=== PATIENT | male | born 1985 | race African-American/Black ===

== ENCOUNTER 2017-11-28 13:11 | Emergency (ER) | payer MEDICAID ==
[~2017-11-28] VITALS: Ht 653.8 cm; Wt 89.0 kg
[~2017-11-28 13:11] MED LIST: SUCR1TAB34 PO
[2017-11-28] MEDS ORDERED: HYDROcodone/acetaminophen 10/325mg tab PO ONE (13:30)
[2017-11-28] MEDS ORDERED: IBUP-1984 PO (14:47)
[2017-11-28] MEDS ORDERED: HYDR-565 PO (14:47)
[2017-11-28 15:19] VITALS: BP 131/77
== END 2017-11-28 15:21 | disposition home or self-care (01) ==
LOC: ER 13:11
DX: S62.336A Displaced fracture of neck of fifth metacarpal bone, right hand, initial encounter for closed fracture (principal); F17.200 Nicotine dependence, unspecified, uncomplicated; Z79.899 Other long term (current) drug therapy; W22.8XXA Striking against or struck by other objects, initial encounter; Y93.89 Activity, other specified; Y92.89 Other specified places as the place of occurrence of the external cause; Y99.8 Other external cause status
CPT/HCPCS: 29125; 73130; 99284

== ENCOUNTER 2018-10-23 08:32 | Emergency (ER) | payer MEDICAID ==
[~2018-10-23] VITALS: Ht 185.4 cm; Wt 99.8 kg
[2018-10-23 09:00] VITALS: BP 132/70
== END 2018-10-23 09:33 | disposition home or self-care (01) ==
LOC: ER 08:33
DX: S51.812A Laceration without foreign body of left forearm, initial encounter (principal); W26.0XXA Contact with knife, initial encounter; Y93.89 Activity, other specified; Y92.89 Other specified places as the place of occurrence of the external cause; Y99.9 Unspecified external cause status
CPT/HCPCS: 99283

== ENCOUNTER 2019-05-30 09:59 | Emergency (ER) | payer MEDICAID, OTHER ==
[~2019-05-30] VITALS: Ht 185.4 cm; Wt 96.5 kg
[2019-05-30] MEDS ORDERED: HYDROcodone/acetaminophen 5mg/325mg tablet PO ONE (10:30)
[2019-05-30 11:10] VITALS: BP 130/82
[2019-05-30] MEDS ORDERED: HYDR-3965 PO (11:33)
== END 2019-05-30 11:58 | disposition home or self-care (01) ==
LOC: ER 09:59
DX: S62.614A Displaced fracture of proximal phalanx of right ring finger, initial encounter for closed fracture (principal); F17.200 Nicotine dependence, unspecified, uncomplicated; F10.99 Alcohol use, unspecified with unspecified alcohol-induced disorder; Z79.899 Other long term (current) drug therapy; W10.8XXA Fall (on) (from) other stairs and steps, initial encounter; Y93.89 Activity, other specified; Y92.89 Other specified places as the place of occurrence of the external cause; Y99.8 Other external cause status; Y90.9 Presence of alcohol in blood, level not specified
CPT/HCPCS: 29130; 73130; 99283

== ENCOUNTER 2020-03-14 01:16 | Inpatient (IN) | payer MEDICAID ==
[~2020-03-14] VITALS: Ht 185.4 cm; Wt 95.0 kg
[2020-03-14] VITALS (18 sets, daily range): BP systolic 113–148; BP diastolic 55–91
[2020-03-14] MEDS ORDERED: fentaNYL/PF 50MCG/1 ML 2ML syringe IV ONE ×2 (01:25→02:35)
[2020-03-14] MEDS ORDERED: ondansetron/PF 4mg/2ml inj IV ONE (01:25)
[2020-03-14 01:40] LABS: ALBUMIN 4.5 G/DL (3.4-5.0); ANION GAP 10 (8-16); BLOOD UREA NITROGEN 11 MG/DL (7-18); BUN/CREATININE RATIO 8.4 (5.4-32.0); CALCIUM 9.1 MG/DL (8.5-10.1); CHLORIDE 103 MMOL/L (99-107); CREATININE 1.31 MG/DL (0.60-1.10); GLUCOSE 124 MG/DL (70-104); POTASSIUM 3.8 MMOL/L (3.5-5.1); SODIUM 141 MMOL/L (135-145); TOTAL CARBON DIOXIDE 27.9 MMOL/L (24-32); eGFR 77 ML/MIN
[2020-03-14 01:43] LABS: BASOPHILS # (AUTO) 0.1 X10'3 (0-0.2); EOSINOPHILS # (AUTO) 0.1 X10'3 (0-0.9); EOSINOPHILS % (AUTO) 0.8 % (0-6); HEMATOCRIT 44.1 % (42.0-52.0); HEMOGLOBIN 15.6 g/dl (14.0-17.9); LYMPHOCYTES # (AUTO) 3.1 X10'3 (1.1-4.8); LYMPHOCYTES % (AUTO) 30.8 % (21-51); MEAN CORPUSCULAR HEMOGLOBIN 33.4 PG (27.0-31.0); MEAN CORPUSCULAR HGB CONC 35.4 g/dL (33.0-36.5); MEAN CORPUSCULAR VOLUME 94.4 FL (78-98); MEAN PLATELET VOLUME 8.2 FL (7.4-10.4); MONOCYTES # (AUTO) 0.6 X10'3 (0-0.9); MONOCYTES % (AUTO) 6.2 % (2-12); NEUTROPHILS # (AUTO) 6.2 X10'3 (1.8-7.7); NEUTROPHILS % (AUTO) 61.2 % (42-75); PLATELET COUNT 229 X10'3 (140-440); RED BLOOD COUNT 4.68 X10'6 (4.70-6.10); RED CELL DISTRIBUTION WIDTH 14.1 % (11.5-14.5); WHITE BLOOD COUNT 10.1 X10'3 (4.5-11.0)
[2020-03-14] MEDS ORDERED: ceFAZolin 1GM/D5W- ADD-VANTAGE 50 ML IV ONE ×3 (01:50→03:45)
[2020-03-14] MEDS: ceFAZolin 1GM/D5W- ADD-VANTAGE 50 ML IV SCH ×4 (01:58→23:13)
--- NOTE | 2020-03-14 02:40 | NUR ---
forestry technician to apply splint. Fentanyl 100 mcg administered for pain
[2020-03-14] MEDS ORDERED: potassium Cl 20 mEq SR tablet PO PRN ×2 (02:55)
[2020-03-14] MEDS ORDERED: ondansetron/PF 4mg/2ml inj IV PRN ×2 (02:55→11:00)
[2020-03-14] MEDS ORDERED: morphine 2 MG/ML inj. syringe IV PRN ×3 (02:55→11:00)
[2020-03-14] MEDS ORDERED: potassium CL 10mEq/100ml bag 100 ML IV PRN ×2 (02:55)
--- NOTE | 2020-03-14 02:57 | NUR ---
Long leg posterior splint applied to Pt right leg. Wound dressed w/ xeroform gauze before splint applied. Pt medicated before procedure w/ 100 mcg fentanyl. CSM intact before and after splint placement.
[2020-03-14] MEDS ORDERED: NO HOME MEDS (03:00)
[2020-03-14] MEDS ORDERED: LORazepam 2 mg/ml vial IV PRN (03:00)
[2020-03-14] MEDS ORDERED: thiamine inj. 100 MG in normal saline 100ml IV soln 100 ML IV ONE (03:00)
--- NOTE | 2020-03-14 03:30 | NUR ---
AMARILIS MATHEW ordered a total of 2 g Ancef.
--- NOTE | 2020-03-14 03:40 | NUR ---
Received report from Rosa MCLAUGHLIN in the ER. Patient will be brought to O/N and go in room 401.
[2020-03-14] MEDS: normal saline 1000ml 1,000 ML IV SCH ×3 (04:11→22:34)
--- NOTE | 2020-03-14 06:24 | NUR ---
Problems reprioritized. Patient report given, questions answered & plan of care reviewed with Jody MCLAUGHLIN.
--- NOTE | 2020-03-14 06:28 | NUR ---
Patient in room ORTHO 4014. I have received report from Rafaela MCLAUGHLIN and had the opportunity to ask questions and assume patient care.
[2020-03-14] MEDS: K and/or MAG REPLACEMENT MC SCH ×2 (08:00→19:05)
[2020-03-14] MEDS ORDERED: HYDROmorphone inj. 0.5 MG/0.5 ML DISP.SYRIN IV PRN (10:25)
--- NOTE | 2020-03-14 10:27 | NUR ---
PAGER ID: [phone] MESSAGE: [id number] Yobany Manning. Dr. Charles said he plans to do surgery later this afternoon. [id number]
[2020-03-14] MEDS ORDERED: proCHLORperazine 10 MG/2 ml inj IV PRN (11:00)
[2020-03-14] MEDS ORDERED: labetalol 20mg/4ml (5mg/ml) syringe IV PRN (11:00)
[2020-03-14] MEDS ORDERED: hydrALAZINE 20mg/ml inj. IV PRN (11:00)
[2020-03-14] MEDS ORDERED: meperidine/PF 25mg/ml syringe IV PRN ×3 (11:00)
[2020-03-14] MEDS ORDERED: morphine 4 MG/ML inj SYRINge IV PRN (11:00)
[2020-03-14] MEDS ORDERED: ringers solution, lacted 1,000 ML IV SCH (11:00)
[2020-03-14] MEDS: HYDROmorphone 1 mg/ml syringe IV PRN (11:59)
[2020-03-14] MEDS ORDERED: famotidine/PF 10 mg/ml inj IV ONE (13:42)
[2020-03-14] MEDS ORDERED: midazolam 2 mg/2 ml injection ONE (13:43)
[2020-03-14] MEDS ORDERED: fentaNYL /PF 50mcg/ml 5ml ampule ONE (14:43)
[2020-03-14] MEDS ORDERED: ROPIVAcaine 0.5% (5mg/ml) 30ml vial ONE ×2 (14:43)
[2020-03-14] MEDS ORDERED: LIDOcaine 2% (20mg/ml) 5ml vial ONE (14:43)
[2020-03-14] MEDS ORDERED: propofol inj 20 ML IV ONE (14:43)
[2020-03-14] MEDS ORDERED: ceFAZolin 1000mg inj ONE (14:44)
[2020-03-14] MEDS ORDERED: rocuronium 10mg/ml inj IV ONE (14:44)
[2020-03-14] MEDS ORDERED: morphine 10mg/ml inj. ONE (14:59)
[2020-03-14] MEDS ORDERED: acetaminophen 1,000mg/100ml IV 100 ML IV ONE (14:59)
[2020-03-14] MEDS ORDERED: BUPIVAcaine/PF 2.5 mg/ml (0.25%) 30ml vial ONE (15:16)
[2020-03-14] MEDS ORDERED: neostigmine methylsulfate 1 MG/ML 10ml vial ONE (15:28)
[2020-03-14] MEDS ORDERED: glycopyrrolate 0.2mg/ml inj ONE (15:28)
--- NOTE | 2020-03-14 15:38 | NUR ---
Received from OR via , accompanied by Anesthesiologist DR CORNELL and report given by Anesthesiolgist. PT IS SLEEPING BUT OPENS EYES TO VOICE, SKIN WARM AND PINK, SCD TO LEFT LE, RIGHT LE HAS SPLINT, XEROFORM, SUTURES AND AN JOHN WRAP, PIV RIGHT HAND 18G WITH LR 100ML/HR, BILAT RADIAL PULSES AND LEFT PEDAL PULSE +3, NO C/O PAIN.
[2020-03-14] MEDS ORDERED: ceFAZolin 1GM/D5W- ADD-VANTAGE 50 ML IV SCH ×2 (16:00)
--- NOTE | 2020-03-14 16:22 | NUR ---
Report called to receiving nurse. Transferred via BED Belongings . Special Issues communicated to receiving nurse ROSA RN. PT WAKES EASILY, LYNNETTE ICE WATER, NO C/O PAIN, RIGHT LE DRESSING CD, PIV PATENT, PT MEETS DISCHARGE CRITERIA.
--- NOTE | 2020-03-14 17:02 | NUR ---
Called Pharmacy to verify Ancef 1GM. Patient received 1152 Ancef on the ortho floor, then went to OR and received Ancef 1GM at 1444. Then the scheduled does was for 1600 Ancef 1GM. I was instructed by the pharmacist to skip 1600 dose and resume schedule of Ancef at 0000.
--- NOTE | 2020-03-14 18:18 | NUR ---
Patient in room ORTHO 4014. I have received report from Jody MCLAUGHLIN and had the opportunity to ask questions and assume patient care.
--- NOTE | 2020-03-14 18:20 | NUR ---
Problems reprioritized. Patient report given, questions answered & plan of care reviewed with Rafaela MCLAUGHLIN.
[2020-03-15] MEDS: HYDROmorphone 1 mg/ml syringe IV PRN ×2 (01:54→06:48)
[2020-03-15 02:00] VITALS: BP 124/61
[2020-03-15 05:53] LABS: BASOPHILS % (AUTO) 0.1 % (0-1); EOSINOPHILS % (AUTO) 0 % (0-6); HEMATOCRIT 35.6 % (42.0-52.0); HEMOGLOBIN 12.5 g/dl (14.0-17.9); LYMPHOCYTES # (AUTO) 1.3 X10'3 (1.1-4.8); LYMPHOCYTES % (AUTO) 8.3 % (21-51); MEAN CORPUSCULAR HEMOGLOBIN 33.1 PG (27.0-31.0); MEAN CORPUSCULAR HGB CONC 35.1 g/dL (33.0-36.5); MEAN CORPUSCULAR VOLUME 94.1 FL (78-98); MEAN PLATELET VOLUME 8.6 FL (7.4-10.4); MONOCYTES # (AUTO) 1.2 X10'3 (0-0.9); MONOCYTES % (AUTO) 7.4 % (2-12); NEUTROPHILS # (AUTO) 13.3 X10'3 (1.8-7.7); NEUTROPHILS % (AUTO) 84.2 % (42-75); PLATELET COUNT 201 X10'3 (140-440); RED BLOOD COUNT 3.78 X10'6 (4.70-6.10); WHITE BLOOD COUNT 15.8 X10'3 (4.5-11.0)
[2020-03-15 05:55] LABS: CHLORIDE 103 MMOL/L (99-107); SODIUM 139 MMOL/L (135-145)
[2020-03-15 06:00] VITALS: BP 119/74
--- NOTE | 2020-03-15 06:11 | NUR ---
Problems reprioritized. Patient report given, questions answered & plan of care reviewed with Sydnee MCLAUGHLIN.
[2020-03-15 06:26] LABS: ALANINE AMINOTRANSFERASE 29 U/L (12-78); ALBUMIN 3.6 G/DL (3.4-5.0); ALKALINE PHOSPHATASE 33 IU/L (46-116); ANION GAP 10 (8-16); ASPARTATE AMINO TRANSFERASE 21 U/L (10-37); BILIRUBIN,TOTAL 0.7 MG/DL (0.1-1.0); BLOOD UREA NITROGEN 11 MG/DL (7-18); BUN/CREATININE RATIO 10.9 (5.4-32.0); CALCIUM 8.2 MG/DL (8.5-10.1); CREATININE 1.01 MG/DL (0.60-1.10); GLUCOSE 120 MG/DL (70-104); TOTAL CARBON DIOXIDE 26.4 MMOL/L (24-32); TOTAL PROTEIN 7.2 G/DL (6.4-8.2); eGFR > 90 ML/MIN
--- NOTE | 2020-03-15 06:39 | NUR ---
Patient in room ORTHO 4014. I have received report from ARNOLDO Russo and had the opportunity to ask questions and assume patient care.
--- NOTE | 2020-03-15 07:13 | NUR ---
Problems reprioritized. Patient report given, questions answered & plan of care reviewed with ARNOLDO Boothe.
[2020-03-15] MEDS: K and/or MAG REPLACEMENT MC SCH (08:00)
[2020-03-15] MEDS: ceFAZolin 1GM/D5W- ADD-VANTAGE 50 ML IV SCH (08:11)
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
[2020-03-15] MEDS ORDERED: IBUP-1986 PO (10:40)
[2020-03-15] MEDS ORDERED: CEPH500C5 PO (10:40)
[2020-03-15] MEDS ORDERED: HYDR-4383 PO (10:40)
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
[2020-03-16] MEDS ORDERED: LORazepam 1 MG tablet PO PRN (03:00)
[2020-03-16] MEDS ORDERED: LORazepam 2 mg/ml vial IV PRN (03:00)
[2020-03-18] MEDS ORDERED: LORazepam 1 MG tablet PO PRN (03:00)
== END 2020-03-15 11:30 | disposition home or self-care (01) | DRG 313 ==
LOC: ER 01:16 → ED HOLD 02:54 → ORTHO 4S 03:55 → PACU 15:43 → ORTHO 4S 16:41
PROVIDERS: ADMIT Internal Medicine; ATTEND Family Medicine
PROC: 2W3QX1Z Immobilization of Right Lower Leg using Splint (ICD-10-PCS; 2020-03-14)
PROC: 0QSG04Z Reposition Right Tibia with Internal Fixation Device, Open Approach (ICD-10-PCS; principal; 2020-03-14 13:37)
DX: S82.244 Nondisplaced spiral fracture of shaft of right tibia (principal); S82.401A Unspecified fracture of shaft of right fibula, initial encounter for closed fracture; W13.8XXA Fall from, out of or through other building or structure, initial encounter; Y93.89 Activity, other specified; Y92.89 Other specified places as the place of occurrence of the external cause; Y99.8 Other external cause status
CPT/HCPCS: 36415; 73590; 76000; 80048; 80053; 85025; 87081; 96365; 96375; 97116; 97161; 97530; 99285; A4215; A4618; A6222; A6449; A7000; C1713; G0378; J0131; J0690; J1170; J2001; J2250; J2270; J2405; J2704; J2710; J2795; J3010; J3411; J3490; J7030; J7120

== ENCOUNTER 2020-04-05 23:33 | Emergency (ER) | payer MEDICAID, OTHER ==
[~2020-04-05] VITALS: Ht 185.4 cm; Wt 97.7 kg
[~2020-04-05 23:33] MED LIST changes: +CEPH500C5 PO; +HYDR-4383 PO; +IBUP-1986 PO; -SUCR1TAB34 PO
[2020-04-05 23:39] VITALS: BP 149/96
[2020-04-06] MEDS ORDERED: HYDROcodone/acetaminophen 5mg/325mg tablet PO ONE (00:30)
[2020-04-06] MEDS ORDERED: ibuprofen tablet 400 MG TABLET PO ONE (00:30)
[2020-04-06] MEDS ORDERED: ondansetron 4mg rapidly disintigrating tab PO ONE (00:30)
[2020-04-06] MEDS ORDERED: acetaminophen 325mg tablet PO ONE (00:30)
[2020-04-06] MEDS ORDERED: ibuprofen 200mg tablet PO ONE (00:30)
== END 2020-04-06 02:22 | disposition home or self-care (01) ==
LOC: ER 23:34
DX: M79.604 Pain in right leg (principal); Z98.890 Other specified postprocedural states; Z72.89 Other problems related to lifestyle; Z79.2 Long term (current) use of antibiotics; Z79.899 Other long term (current) drug therapy
CPT/HCPCS: 29515; 99284

== ENCOUNTER 2021-01-11 10:52 | Emergency (ER) | payer MEDICAID ==
[~2021-01-11] VITALS: Ht 185.4 cm; Wt 96.4 kg
[~2021-01-11 10:52] MED LIST changes: +CEPH-585 PO; -CEPH500C5 PO
[2021-01-11 10:58] VITALS: BP 120/69
[2021-01-11] MEDS ORDERED: iohexol 300mg/ml 100ml inj. ONE (11:18)
[2021-01-11 11:31] LABS: BASOPHILS % (AUTO) 0.5 % (0-1); EOSINOPHILS # (AUTO) 0.1 X10'3 (0-0.9); EOSINOPHILS % (AUTO) 1.8 % (0-6); HEMATOCRIT 42.8 % (42.0-52.0); HEMOGLOBIN 15.1 g/dl (14.0-17.9); LYMPHOCYTES # (AUTO) 1.5 X10'3 (1.1-4.8); LYMPHOCYTES % (AUTO) 18.3 % (21-51); MEAN CORPUSCULAR HEMOGLOBIN 32.9 PG (27.0-31.0); MEAN CORPUSCULAR HGB CONC 35.3 g/dL (33.0-36.5); MEAN CORPUSCULAR VOLUME 93.3 FL (78-98); MEAN PLATELET VOLUME 8.2 FL (7.4-10.4); MONOCYTES % (AUTO) 12.2 % (2-12); NEUTROPHILS # (AUTO) 5.5 X10'3 (1.8-7.7); NEUTROPHILS % (AUTO) 67.2 % (42-75); PLATELET COUNT 216 X10'3 (140-440); RED BLOOD COUNT 4.59 X10'6 (4.70-6.10); RED CELL DISTRIBUTION WIDTH 13.7 % (11.5-14.5); WHITE BLOOD COUNT 8.1 X10'3 (4.5-11.0)
[2021-01-11 11:46] LABS: ALANINE AMINOTRANSFERASE 40 U/L (12-78); ALBUMIN 4.1 G/DL (3.4-5.0); ANION GAP 9 (8-16); ASPARTATE AMINO TRANSFERASE 42 U/L (10-37); BILIRUBIN,TOTAL 0.7 MG/DL (0.1-1.0); BLOOD UREA NITROGEN 15 MG/DL (7-18); BUN/CREATININE RATIO 13.4 (5.4-32.0); CALCIUM 8.9 MG/DL (8.5-10.1); CHLORIDE 104 MMOL/L (99-107); CREATININE 1.12 MG/DL (0.60-1.10); GLUCOSE 106 MG/DL (70-104); POTASSIUM 3.8 MMOL/L (3.5-5.1); SODIUM 141 MMOL/L (135-145); TOTAL CARBON DIOXIDE 28.4 MMOL/L (24-32); TOTAL PROTEIN 8.1 G/DL (6.4-8.2); eGFR > 90 ML/MIN
[2021-01-11 11:47] LABS: ALKALINE PHOSPHATASE 47 IU/L (46-116)
[2021-01-11] MEDS ORDERED: IBUP-1984 PO (12:14)
== END 2021-01-11 12:30 | disposition home or self-care (01) ==
LOC: ER 10:53
DX: M25.511 Pain in right shoulder (principal); R10.9 Unspecified abdominal pain; V87.7XXA Person injured in collision between other specified motor vehicles (traffic), initial encounter; Y93.89 Activity, other specified; Y92.89 Other specified places as the place of occurrence of the external cause; Y99.8 Other external cause status
CPT/HCPCS: 36415; 71260; 73030; 74177; 80053; 85025; 99285; Q9967

== ENCOUNTER 2021-02-11 17:52 | Emergency (ER) | payer MEDICAID ==
[~2021-02-11] VITALS: Ht 185.4 cm; Wt 95.7 kg
[2021-02-11 18:27] VITALS: BP 131/69
== END 2021-02-11 22:54 | disposition left against medical advice (07) ==
LOC: ER 17:53
DX: R25.2 Cramp and spasm (principal); M79.604 Pain in right leg; Z98.890 Other specified postprocedural states; Z72.89 Other problems related to lifestyle; Z79.2 Long term (current) use of antibiotics; Z79.899 Other long term (current) drug therapy
CPT/HCPCS: 93971; 99284

== ENCOUNTER 2021-09-21 13:20 | Emergency (ER) | payer MEDICAID ==
[~2021-09-21] VITALS: Ht 185.4 cm; Wt 94.5 kg
[~2021-09-21 13:20] MED LIST changes: -CEPH-585 PO
[2021-09-21 13:50] LABS: BASOPHILS # (AUTO) 0.1 X10'3 (0-0.2); BASOPHILS % (AUTO) 0.6 % (0-1); EOSINOPHILS # (AUTO) 0.1 X10'3 (0-0.9); EOSINOPHILS % (AUTO) 1.1 % (0-6); HEMATOCRIT 42.1 % (42.0-52.0); HEMOGLOBIN 14.8 g/dl (14.0-17.9); LYMPHOCYTES # (AUTO) 2.1 X10'3 (1.1-4.8); LYMPHOCYTES % (AUTO) 21.8 % (21-51); MEAN CORPUSCULAR HEMOGLOBIN 32.3 PG (27.0-31.0); MEAN CORPUSCULAR HGB CONC 35.2 g/dL (33.0-36.5); MEAN CORPUSCULAR VOLUME 91.8 FL (78-98); MEAN PLATELET VOLUME 7.3 FL (7.4-10.4); MONOCYTES # (AUTO) 0.7 X10'3 (0-0.9); MONOCYTES % (AUTO) 7.2 % (2-12); NEUTROPHILS # (AUTO) 6.6 X10'3 (1.8-7.7); NEUTROPHILS % (AUTO) 69.3 % (42-75); PLATELET COUNT 255 X10'3 (140-440); RED BLOOD COUNT 4.59 X10'6 (4.70-6.10); RED CELL DISTRIBUTION WIDTH 13.9 % (11.5-14.5); WHITE BLOOD COUNT 9.5 X10'3 (4.5-11.0)
[2021-09-21 14:07] LABS: ALANINE AMINOTRANSFERASE 26 U/L (12-78); ALBUMIN 4.1 G/DL (3.4-5.0); ALKALINE PHOSPHATASE 47 IU/L (46-116); ANION GAP 8 (8-16); ASPARTATE AMINO TRANSFERASE 22 U/L (10-37); BILIRUBIN,TOTAL 0.6 MG/DL (0.1-1.0); BLOOD UREA NITROGEN 12 MG/DL (7-18); BUN/CREATININE RATIO 11.7 (5.4-32.0); CALCIUM 8.7 MG/DL (8.5-10.1); CHLORIDE 103 MMOL/L (99-107); CREATININE 1.03 MG/DL (0.60-1.10); GLUCOSE 99 MG/DL (70-104); LIPASE 85 U/L (73-393); POTASSIUM 3.8 MMOL/L (3.5-5.1); SODIUM 136 MMOL/L (135-145); TOTAL CARBON DIOXIDE 25.4 MMOL/L (24-32); TOTAL PROTEIN 8.1 G/DL (6.4-8.2); eGFR > 90 ML/MIN
[2021-09-21 14:43] LABS: CLARITY,URINE CLEAR (Clear); COLOR,URINE YELLOW (Yellow); GLUCOSE, URINE NEGATIVE (Neg); KETONES,URINE NEGATIVE (Neg); LEUKOCYTE ESTERASE ,URINE NEGATIVE (Neg); NITRITES, URINE NEGATIVE (Neg); OCCULT BLOOD,URINE NEGATIVE (Neg); PROTEIN,URINE TRACE mg/dl (Neg)
[2021-09-21 14:45] LABS: UA COLLECTION TYPE CLN CATCH MIDSTREAM
[2021-09-21 14:53] LABS: MUCUS STRANDS FEW /LPF (Neg); SQUAMOUS EPITHELIAL CELL,UR FEW /LPF (FEW)
[2021-09-21 14:54] LABS: BACTERIA,URINE NONE SEEN /HPF (Neg); RBC,URINE 0-2 /HPF (0-2); TRANSITIONAL EPI CELLS,URINE FEW /HPF; WBC,URINE 0-4 /HPF (0-4)
[2021-09-21 16:44] VITALS: BP 121/85
== END 2021-09-21 16:47 | disposition home or self-care (01) ==
LOC: ER 13:21
DX: R10.84 Generalized abdominal pain (principal); Z20.822 Contact with and (suspected) exposure to COVID-19; R50.9 Fever, unspecified; R06.02 Shortness of breath; Z98.890 Other specified postprocedural states; Z72.89 Other problems related to lifestyle
CPT/HCPCS: 36415; 80053; 81001; 83690; 85025; 87635; 99285; C9803

== ENCOUNTER 2022-03-21 20:41 | Emergency (ER) | payer MEDICAID ==
[~2022-03-21] VITALS: Ht 185.4 cm; Wt 93.2 kg
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
[2022-03-21] MEDS ORDERED: TETanus/Pertussis (Acell)/Diphther VAC/PF (Tdap-Adult) 0.5ml syringe IMVAC ONE (21:10)
[2022-03-21 21:22] LABS: BASOPHILS # (AUTO) 0.1 X10'3 (0-0.2); BASOPHILS % (AUTO) 1.3 % (0-1); EOSINOPHILS # (AUTO) 0.2 X10'3 (0-0.9); EOSINOPHILS % (AUTO) 2.8 % (0-6); HEMATOCRIT 40.3 % (42.0-52.0); HEMOGLOBIN 14.3 g/dl (14.0-17.9); LYMPHOCYTES # (AUTO) 4.1 X10'3 (1.1-4.8); LYMPHOCYTES % (AUTO) 46.7 % (21-51); MEAN CORPUSCULAR HEMOGLOBIN 33.4 PG (27.0-31.0); MEAN CORPUSCULAR HGB CONC 35.6 g/dL (33.0-36.5); MEAN CORPUSCULAR VOLUME 93.9 FL (78-98); MEAN PLATELET VOLUME 7.8 FL (7.4-10.4); MONOCYTES # (AUTO) 0.6 X10'3 (0-0.9); MONOCYTES % (AUTO) 6.4 % (2-12); NEUTROPHILS # (AUTO) 3.7 X10'3 (1.8-7.7); NEUTROPHILS % (AUTO) 42.8 % (42-75); PLATELET COUNT 204 X10'3 (140-440); RED BLOOD COUNT 4.29 X10'6 (4.70-6.10); RED CELL DISTRIBUTION WIDTH 13.9 % (11.5-14.5); WHITE BLOOD COUNT 8.7 X10'3 (4.5-11.0)
[2022-03-21 21:30] LABS: APTT 23 SECONDS (22-32)
[2022-03-21] MEDS ORDERED: iohexol 300mg/ml 100ml inj. ONE (21:31)
[2022-03-21 21:32] LABS: ALANINE AMINOTRANSFERASE 34 U/L (12-78); ALBUMIN 3.7 G/DL (3.4-5.0); ALBUMIN/GLOBULIN RATIO 1.1 (1.1-1.5); ALKALINE PHOSPHATASE 45 IU/L (46-116); ANION GAP 9 (8-16); ASPARTATE AMINO TRANSFERASE 38 U/L (10-37); BILIRUBIN,TOTAL 0.4 MG/DL (0.1-1.0); BLOOD UREA NITROGEN 11 MG/DL (7-18); BUN/CREATININE RATIO 9.8 (5.4-32.0); CALCIUM 8.6 MG/DL (8.5-10.1); CHLORIDE 107 MMOL/L (99-107); CREATININE 1.12 MG/DL (0.60-1.10); ETHANOL 0.146 GM/DL (0.0-0.010); GLUCOSE 140 MG/DL (70-104); SODIUM 143 MMOL/L (135-145); TOTAL CARBON DIOXIDE 27.1 MMOL/L (24-32); TOTAL PROTEIN 7.2 G/DL (6.4-8.2); eGFR > 90 ML/MIN
[2022-03-21] MEDS ORDERED: morphine 4 MG/ML inj SYRINge IV ONE (21:50)
[2022-03-21] MEDS ORDERED: ondansetron/PF 4mg/2ml inj IV ONE (21:55)
[2022-03-21 22:06] LABS: POTASSIUM 3.4 MMOL/L (3.5-5.1)
[2022-03-21 22:35] VITALS: BP 142/98
[2022-03-21] MEDS ORDERED: LIDOcaine 1% w/EPI 1:100,000 30ml vial (MDV) ONE (22:45)
[2022-03-21] MEDS ORDERED: LIDOcaine 1% 30ml preserv. free vial IJ STA (22:47)
[2022-03-21] MEDS ORDERED: bacitracin 15gm ointment TP ONE (22:50)
[2022-03-22 00:01] LABS: PLATELET ESTIMATE NORMAL; TOTAL CELLS COUNTED 100
== END 2022-03-22 01:02 | disposition home or self-care (01) ==
LOC: ER 20:43
DX: S91.331A Puncture wound without foreign body, right foot, initial encounter (principal); R10.9 Unspecified abdominal pain; N50.812 Left testicular pain; W34.09XA Accidental discharge from other specified firearms, initial encounter; Y93.89 Activity, other specified; Y92.89 Other specified places as the place of occurrence of the external cause; Y99.8 Other external cause status
CPT/HCPCS: 12002; 36415; 71045; 73600; 73630; 74177; 80053; 80320; 85007; 85025; 85610; 85730; 86885; 86900; 86901; 90471; 90715; 93005; 96374; 96375; 99285; A6223; J2270; J2405; J3490; Q9967; 86870; A6446

== ENCOUNTER 2022-05-29 11:11 | Emergency (ER) | payer MEDICAID ==
[~2022-05-29] VITALS: Ht 185.4 cm; Wt 97.0 kg
[2022-05-29 14:25] LABS: BASOPHILS % (AUTO) 0.5 % (0-1); EOSINOPHILS # (AUTO) 0.1 X10'3 (0-0.9); EOSINOPHILS % (AUTO) 1.6 % (0-6); HEMATOCRIT 39.4 % (42.0-52.0); LYMPHOCYTES # (AUTO) 2.5 X10'3 (1.1-4.8); LYMPHOCYTES % (AUTO) 29.2 % (21-51); MEAN CORPUSCULAR HEMOGLOBIN 33.2 PG (27.0-31.0); MEAN CORPUSCULAR HGB CONC 35.5 g/dL (33.0-36.5); MEAN CORPUSCULAR VOLUME 93.5 FL (78-98); MEAN PLATELET VOLUME 7.7 FL (7.4-10.4); MONOCYTES # (AUTO) 0.8 X10'3 (0-0.9); MONOCYTES % (AUTO) 9.5 % (2-12); NEUTROPHILS % (AUTO) 59.2 % (42-75); PLATELET COUNT 221 X10'3 (140-440); RED BLOOD COUNT 4.21 X10'6 (4.70-6.10); RED CELL DISTRIBUTION WIDTH 13.5 % (11.5-14.5); WHITE BLOOD COUNT 8.4 X10'3 (4.5-11.0)
--- NOTE | 2022-05-29 14:29 | NUR ---
relieving RN for break, pt is resting quietly on gurthi, family at bedside, waiting for lab results
[2022-05-29 14:33] LABS: ALANINE AMINOTRANSFERASE 40 U/L (12-78); ALBUMIN/GLOBULIN RATIO 1.1 (1.1-1.5); ALKALINE PHOSPHATASE 42 IU/L (46-116); ANION GAP 6 (8-16); ASPARTATE AMINO TRANSFERASE 34 U/L (10-37); BILIRUBIN,TOTAL 0.4 MG/DL (0.1-1.0); BLOOD UREA NITROGEN 17 MG/DL (7-18); BUN/CREATININE RATIO 16.2 (5.4-32.0); CALCIUM 8.6 MG/DL (8.5-10.1); CHLORIDE 106 MMOL/L (99-107); CREATININE 1.05 MG/DL (0.60-1.10); GLUCOSE 100 MG/DL (70-104); SODIUM 140 MMOL/L (135-145); TOTAL CARBON DIOXIDE 28.2 MMOL/L (24-32); TOTAL PROTEIN 7.6 G/DL (6.4-8.2); eGFR > 90 ML/MIN
[2022-05-29] MEDS ORDERED: HYDROcodone/acetaminophen 5mg/325mg tablet PO ONE (14:40)
[2022-05-29] MEDS ORDERED: HYDR-3965 PO (14:42)
[2022-05-29 15:37] VITALS: BP 132/85
== END 2022-05-29 15:40 | disposition home or self-care (01) ==
LOC: ER 11:11
DX: S09.90XA Unspecified injury of head, initial encounter (principal); R55 Syncope and collapse; M25.561 Pain in right knee; M25.571 Pain in right ankle and joints of right foot; Z98.890 Other specified postprocedural states; W19.XXXA Unspecified fall, initial encounter; Y93.89 Activity, other specified; Y92.89 Other specified places as the place of occurrence of the external cause; Y99.8 Other external cause status
CPT/HCPCS: 36415; 73590; 73600; 80053; 84484; 85025; 93005; 99285; L1930